=== PATIENT | male | born 2000 ===

== ENCOUNTER → 2024-04-01 15:11 | Outpatient (CLI) | payer OTHER, SELFPAY ==
--- NOTE | 2024-04-01 | DI.ECHO.S_ITS ---
[facility] : : [address] : : [place] : : [id number] : : Phone: [phone] Echocardiogram Report + + :Name: JOHANNA GARCIA Study Date: 04/01/2024 Height: 68 in : :[facility] ReadingLocation: Weight: 200 lb : : Gender: Male BSA: 2.0 m2 : :: 2000 Age: 23 yrs BP: 128/85 mmHg: :Reason For Study: ISCHEDMIC HEART DISEASE : :Ordering Physician: MIKAELA, : :GAEL Performed By: Monse Sousa : :Referring: GAEL AL : + + Interpretation Summary 1. The left ventricular contractility is normal. Estimate ejection fraction is greater than 60% with no segmental wall motion abnormalities. No LVH. Normal diastolic function. 2. The right ventricle contractility is normal. 3. All cardiac chambers are of normal size. 4. No significant valvular abnormalities. 5. No obvious intracardiac shunts. 6. No obvious intracardiac masses nor thrombi. 7. No hemodynamically significant pericardial effusion. 8. Low right-sided filling pressures. Conclusion: Normal biventricular function with no significant valvular nor structural abnormalities. Procedure: A two-dimensional transthoracic echocardiogram with color flow and Doppler was performed. The study quality was technically adequate. There is no prior echocardiogram noted for this patient. The patient was in sinus bradycardia with heart rates between 47-61 bpm during the exam. Left Ventricle: The left ventricle is normal in size and wall thickness. The ejection fraction is estimated to be 60-65%. Right Ventricle: The right ventricle is normal in size and function. Atria: The left atrial size is normal. Right atrial size is normal. There is no Doppler evidence for an interatrial shunt. Mitral Valve: The mitral valve is normal in structure and function. There is trace mitral regurgitation. Aortic Valve: The aortic valve is trileaflet. The aortic valve opens well. There is no aortic valve stenosis. No aortic regurgitation is present. Tricuspid Valve: The tricuspid valve is normal in structure and function. There is trace tricuspid regurgitation. The right ventricular systolic pressure is estimated to be at least 22 mmHg based on an estimated right atrial pressure of 3 mm Hg. Pulmonic Valve: The pulmonic valve leaflets are thin and pliable; valve motion is normal. There is no pulmonic valvular regurgitation. Great Vessels: The aortic root is normal size. The dimensions of the ascending aorta are normal. The IVC is of normal diameter and collapses greater than 50% with a sniff. This suggests a low right atrial pressure of 3 mm Hg. Pericardium/ Pleura There is no pericardial effusion. There is no pleural effusion. MMode/2D Measurements & Calculations LVIDd: 5.1 cm LVOT diam: 2.0 cm LVIDs: 3.2 cm Ao root diam: 2.9 cm FS: 36.8 % asc Aorta Diam: 2.7 cm EPSS: 0.68 cm Ao Arch Diam (Prox Trans): 2.2 cm IVSd: 0.95 cm LVPWd: 0.87 cm LV small. diameter/BSA (cm/m^2): 2.5 LV sys. diameter/BSA (cm/m^2): 1.6 LA A2 area: 14.5 cm2 RA long axis: 4.4 cm LA A4 area: 15.0 cm2 RA area: 13.8 cm2 LA length (vol): 4.9 cm RA vol: 36.6 ml LA vol: 37.5 ml RA : 17.9 ml/m2 LA vol index: 18.3 ml/m2 IVC diam: 1.6 cm RVD1 (basal): 3.7 cm TAPSE: 1.6 cm Doppler Measurements & Calculations Ao V2 max: 144.0 cm/sec LVOT Max Ethan: 91.8 cm/sec Ao V2 mean: 94.9 cm/sec LV V1 max P.4 mmHg Ao max P.3 mmHg LV V1 VTI: 19.2 cm Ao mean P.1 mmHg MERY(I,D): 2.1 cm2 Ao V2 VTI: 29.6 cm MERY(V,D): 2.1 cm2 sev ratio: 0.65 MERY indexed to BSA (cm^2/m^2): 1.0 MV E max ethan: 64.5 cm/sec TR max ethan: 214.9 cm/sec MV A max ethan: 33.9 cm/sec TR max P.5 mmHg MV E/A: 1.9 PA V2 max: 108.9 cm/sec Med Peak E' Ethan: 10.5 cm/sec PA V2 mean: 73.6 cm/sec E/E' med: 6.2 PA mean P.5 mmHg Lat Peak E' Ethan: 17.9 cm/sec PA pr(Accel): 24.2 mmHg E/E' lat: 3.6 E/e' average: 4.9 MV dec time: 0.20 sec SV(LVOT): 62.8 ml Reading Physician:
== END ==
PROVIDERS: Referring Provider Chiropractor; Visit Provider Chiropractor
DX: I25.9 Chronic ischemic heart disease, unspecified (principal); R16.0 Hepatomegaly, not elsewhere classified
CPT/HCPCS: 93306